=== PATIENT | female | born 1950 | race Caucasian/White ===

== ENCOUNTER 2018-04-15 10:55 | Emergency (ER) | payer BC ==
[2018-04-15 11:22] VITALS: BP 131/77
--- NOTE | 2018-04-15 12:17 | RAD ---
INDICATION: Lateral LEFT wrist pain post fall. COMPARISON: No relevant prior exams available on the [facility] for comparison. TECHNIQUE: AP, lateral, and oblique views LEFT wrist. REPORT: Bone density appears decreased throughout corresponding with osteopenia on November 20, 2016 DEXA scan. Small bone fragment at the level of the ulnar styloid may represent an acute avulsion fracture or sequela of remote injury warranting clinical correlation. Degenerative arthropathy most prominent at the distal radioulnar joint and radiocarpal joints moderate in severity. Mild nonfocal soft tissue swelling. IMPRESSION: #. Small bone fragment at the level of the ulnar styloid may represent an acute avulsion fracture or sequela of remote injury warranting clinical correlation.
--- NOTE | 2018-04-15 12:19 | UC ---
Hand/Wrist HPI - HPI Summary HPI Summary: Patient is a 68-year-old female who presents to the with concern over left wrist and right ankle injury after a fall 2 days ago. She has been ambulating, but with pain. She endorses some swelling to the lateral side of the ankle and the volar wrist. Also endorses some ecchymosis to the volar side of the wrist. Decreased range of motion in both ankle and wrist. She states the injury occurred after a mechanical fall 2 days ago and feels as though she inverted her ankle and had a FOOSH injury to the left wrist. Denies hitting her head or any other injuries at this time. - History Of Current Complaint Chief Complaint: UCUpperExtremity Stated Complaint: WRIST/ANKLE INJURY Time Seen by Provider: 04/15/18 11:27 Hx Obtained From: Patient ?: No Onset/Duration: Sudden Onset Severity Initially: Moderate Severity Currently: Moderate Pain Intensity: 6 Pain Scale Used: 0-10 Numeric Character Of Pain: Aching Aggravating Factor(s): Lifting, Flexion, Extension Alleviating Factor(s): Rest, Ice Associated Signs And Symptoms: Positive: Swelling, Redness, Bruising Related History: Dominant Hand Right - Risk Factors Compartment Syndrome Risk Factors: Pain - Allergies/Home Medications Allergies/Adverse Reactions: Allergies Allergy/AdvReac Type Severity Reaction Status Date / Time No Known Allergies Allergy Verified 04/15/18 11:23 Home Medications: Home Medications Anastrozole (NF) [Arimidex (NF)] 1 tab PO DAILY 04/15/18 [History Confirmed ] Calcium Carbonate/Vitamin D3 [Calcium 500-Vit D3 200 Caplet] 3 tab PO DAILY [History Confirmed 04/15/18] traMADol TAB* [Ultram*] 1 tab PO BID 04/15/18 [History Confirmed 04/15/18] PMH/Surg Hx/FS Hx/Imm Hx Previously Healthy: Yes - Surgical History Surgical History: Yes Surgery Procedure, Year, and Place: 09/01/14 RIGHT BREAST LUMPECTOMY, BIOPSY ([facility]) - Family History Known Family History: Positive: None - Social History Occupation: Unemployed, Retired Lives: With Family Alcohol Use: None Substance Use Type: None Smoking Status (MU): Light Every Day Tobacco Smoker Type: Cigarettes Amount Used/How Often: 1/2PPD 50 YRS NOW 1-2 CIG/DAY Have You Smoked in the Last Year: Yes Household Exposure Type: Cigarettes Review of Systems Constitutional: Negative Skin: Bruising - volar wrist Respiratory: Negative Cardiovascular: Negative Musculoskeletal: Arthralgia - volar left wrist pain and right lateral ankle pain and swelling Neurological: Negative Is Patient Immunocompromised?: No All Other Systems Reviewed And Are Negative: Yes Physical Exam Triage Information Reviewed: Yes Appearance: Well-Appearing, Well-Nourished Vital Signs: Initial Vital Signs Temp 97.8 F 04/15/18 11:19 Pulse 71 04/15/18 11:19 Resp 12 04/15/18 11:19 BP 131/77 04/15/18 11:19 Pulse Ox 100 04/15/18 11:19 Vital Signs Reviewed: Yes Eye Exam: Normal Neck exam: Normal Neck: Positive: Supple Respiratory: Positive: Chest non-tender, Lungs clear Cardiovascular Exam: Normal Neurological Exam: Normal Neurological: Positive: Alert Psychological: Positive: Normal Response To Family Skin: Positive: Other - ecchymosis to the left volar wrist Hand/Wrist Course/Dx - Course Course Of Treatment: Patient remains ambulating well. Endorses pain to the right lateral ankle with swelling. Left volar wrist ecchymosis with slight swelling. X-ray obtained of both. IMPRESSION: #. Small bone fragment at the level of the ulnar styloid may represent an acute avulsion. fracture or sequela of remote injury warranting clinical correlation. Thumb spica splint applied. - Differential Dx/Diagnosis Differential Diagnosis/HQI/PQRI: Fracture, Sprain, Strain Provider Diagnoses: Left wrist avulsion fracture - remote Discharge - Sign-Out/Discharge Documenting (check all that apply): Patient Departure - Discharge Plan Condition: Stable Disposition: HOME Patient Education Materials: Avulsion Fracture (ED) Referrals: Annemarie Oquendo MD [Primary Care Provider] - Additional Instructions: As discussed, this avulsion fracture is likely old Wrist splint x 1-2 weeks (depending on pain level) Continue to provide range of motion exercises to the wrist to promote blood flow Ice for 2-3 days, then heat and ice intermittently Elevate the ankle as much as possible Ibuprofen 600mg three times daily for inflammation - Billing Disposition and Condition Condition: STABLE Disposition: Home Attestation Statement User Type: Provider - I was available for consult. This patient was seen by the [facility]. The patient was not presented to, seen by, or examined by me. -Earnest
--- NOTE | 2018-04-15 12:19 | RAD ---
Indication: RIGHT ankle pain post fall. Comparison: No relevant prior exams available on the [facility] [place] [facility] for comparison. Technique: AP, mortise, and lateral views RIGHT ankle. Report: Bone density appears decreased corresponding with osteopenia on previous DEXA scan. No fracture or osteochondral lesion evident. Talocrural joint effusion. Soft tissue swelling over the lateral malleolus. Fusiform thickening of the noninsertional and insertional segments of the Achilles tendon with dystrophic calcification consistent with sequela of previous/chronic Achilles tendinopathy. IMPRESSION: #. Soft tissue swelling over the lateral malleolus and talocrural joint effusion without definitive fracture. #. Sequela of previous/chronic Achilles tendinopathy.
== END 2018-04-15 12:49 | disposition home or self-care (01) ==
LOC: UCEAST 10:55
DX: S69.92XA Unspecified injury of left wrist, hand and finger(s), initial encounter (principal); S99.911A Unspecified injury of right ankle, initial encounter; F17.210 Nicotine dependence, cigarettes, uncomplicated; W19.XXXA Unspecified fall, initial encounter; Y92.9 Unspecified place or not applicable
CPT/HCPCS: 99211; G0463